=== PATIENT | male | born 1980 ===

== ENCOUNTER 2024-01-03 09:37 | Outpatient (CLI) | payer BC, SELFPAY ==
--- NOTE | ~2024-01-03 | MR_ITS ---
MRI of the left shoulder Technique: Axial proton-density fat-sat images, coronal proton density fat-sat and T2 fat-sat images, and sagittal T1-weighted and T2 fat-sat images were acquired. Clinical History: Injury Findings: There is an oblique, acute, essentially nondisplaced fracture of the distal third of the le ft clavicle, with surrounding marrow and soft tissue edema. There is mild AC joint degenerative kim e. No subacromial spur. Coracoclavicular, coracoacromial, coracohumeral ligaments are intact. Supraspinatus and infraspinatus tendons are intact, without partial or full-thickness tear. Subscapul evangelina tendon is intact. Tendon of the long head of the biceps is intact. Possible focal undersurface tear of the superior labrum versus intrasubstance degenerative signal. No other labral tear evident. Inferior glenohumeral ligament is intact. No degenerative change or effusion of the glenohumeral join t. No fluid distention of the subacromial/subdeltoid bursa. Impression: Acute, oblique, essentially nondisplaced fracture of the distal third of the left clavicle. Suspected intrasubstance degenerative signal of the superior labrum versus possibly a focal tear. Rotator cuff intact. Reviewed, dictated and finalized at location . Impression: Acute, oblique, essentially nondisplaced fracture of the distal third of the le ft clavicle. Suspected intrasubstance degenerative signal of the superior labrum versus poss ibly a focal tear. Rotator cuff intact.
== END 2024-01-03 09:38 ==
LOC: GOSHIMG 09:41
PROVIDERS: PCP Family Medicine; Visit Provider Physician Assistant
DX: S42.035A Nondisplaced fracture of lateral end of left clavicle, initial encounter for closed fracture (principal); X58.XXXA Exposure to other specified factors, initial encounter
CPT/HCPCS: 73221